=== PATIENT | female | born 1990 | race African-American/Black ===

== ENCOUNTER 2020-12-25 09:12 | Emergency (ER) | payer OTHER ==
[~2020-12-25] VITALS: Ht 172.7 cm; Wt 119.3 kg
[2020-12-25 09:14] VITALS: BP 137/60
--- NOTE | 2020-12-25 09:22 | NUR ---
Patient taken to bed 7 via wheelchair. Patient transferred herself to the bed.
--- NOTE | 2020-12-25 09:27 | NUR ---
Pt ambulated to bathroom, steady gait.
--- NOTE | 2020-12-25 09:43 | NUR ---
Dr. Jay is evaluating the patient at bedside.
[2020-12-25] MEDS ORDERED: KETOROLAC 60 MG/2 ML VIAL IM ONE (09:50)
[2020-12-25] MEDS ORDERED: ACET-8386 PO (09:54)
[2020-12-25] MEDS ORDERED: CIPR500T4 PO (09:54)
[2020-12-25] MEDS ORDERED: IBUP-2213 PO (09:54)
--- NOTE | 2020-12-25 09:56 | NUR ---
30/F presents to ED with c/o right hip and leg pain x2 days. Patient states on Sunday she tripped over a stool and "almost fell," states two days ago she began having 10/10 constant sharp right hip pain that has been radiating down her right leg. Patient states she has been taking Ibuprofen and Tylenol at home with no relief. Right hip is tender to touch, patient states walking and movement worsens the pain. Patient able to move extremity, able to walk without assistance. Patient denies dysuria and hematuria, denies chest pain or shortness of breath.
[2020-12-25 10:24] VITALS: BP 137/60
--- NOTE | 2020-12-25 10:24 | NUR ---
Patient discharged with v/s stable. Written and verbal after care instructions given and explained. Patient alert, oriented and verbalized understanding of instructions. Ambulatory with steady gait. All questions addressed prior to discharge. ID band removed. Patient advised to follow up with PMD. Rx of Donalds, Ciprofloxacin and Ibuprofen given. Patient educated on indication of medication including possible reaction and side effects. Opportunity to ask questions provided and answered.
== END 2020-12-25 10:24 | disposition home or self-care (01) ==
LOC: MED 09:12
DX: M25.551 Pain in right hip (principal); N39.0 Urinary tract infection, site not specified; Z79.899 Other long term (current) drug therapy; Z98.890 Other specified postprocedural states
CPT/HCPCS: 73502; 81002; 81025; 96372; 99283; J1885